=== PATIENT | female | born 1975 | race Caucasian/White ===

== ENCOUNTER 2016-11-05 10:36 | Emergency (ER) | payer OTHER ==
[~2016-11-05] VITALS: Ht 170.2 cm; Wt 96.2 kg
[~2016-11-05 10:36] MED LIST: LEVSIN/SL0.125 MG SL; METFORMIN HCL500 MG PO; PROBIOTICA100 Millio PO; TOPROL XL 12.12.5 MG PO; ULTRAM(MONOGRAP50 MG PO; XANAX0.25 MG PO
--- NOTE | 2016-11-05 10:41 | ED AMS/SEIZURE/WEAK/DIZZY ---
History of Present Illness General Chief Complaint: General Adult Stated Complaint: RAPID HR,GEN WEAKNESS Source: patient, family, old records Exam Limitations: no limitations Vital Signs & Intake/Output Vital Signs & Intake/Output Vital Signs Date Time Temp Pulse Resp B/P B/P Pulse O2 O2 Flow FiO2 Mean Ox Delivery Rate 11/05 1238 97.0 98 18 110/71 100 Room Air 11/05 1056 99 Room Air 11/05 1038 96.6 97 18 151/79 100 Room Air Allergies Coded Allergies: Sulfa (Sulfonamide Antibiotics) (Mild, HIVES 11/05/16) metoclopramide (Mild, I GO CRAZY 11/05/16) Reconcile Medications Alprazolam (Xanax) 0.25 MG TAB 1 TAB PO PRN ANXIETY (Reported) Hyoscyamine Sulfate (Levsin-Sl) 0.125 MG TAB 1 TAB SL Q6P PRN abd pain Lactobacillus Reuteri (Probiotica) 100 Million ORG CTB 1 CAP PO DAILY SUPPLMENT (Reported) Metformin Hydrochloride (Metformin HCl) 500 MG TAB 1 TAB PO DAILY DIABETES ( Reported) Metoprolol Succ XL (Toprol XL 12.5MG) 12.5 MG HTAB 1 TAB PO DAILY HEART ( Reported) Tramadol HCl (Ultram) 50 MG TAB 1-2 TAB PO Q6 PRN severe pain Triage Nurses Notes Reviewed? yes Onset: Abrupt Duration: day(s): (1) Timing: recent history Injury Environment: home Severity: mild, moderate Severity Numbers: 7 No Modifying Factors: none Associated Symptoms: palpitaitons HPI: Is a 41-year-old female history of PVCs presents to ER after she states she became lightheaded and dizzy palpitations and nauseous while standing. She is a OR nurse here. The patient states she had a dental procedure yesterday, she states she did not go home with any pain medications or antibiotics. She is not taken anything on a regular basis. No chest pain shortness of breath no recent fall or head trauma she denies fainting no abdominal pain vomiting diarrhea (SERA CANO,RAMÍREZ) Past History Travel History Traveled to [place] past 21 day No Medical History Any Pertinent Medical History? see below for history Cardiovascular: PVC Gastrointestinal: irritable bowel syndrome Surgical History Surgical History: hernia repair-umbilical, hernia repair-ventral, hysterectomy, D/C left oophorectomy Psychosocial History What is your primary language Faroese Family History Hx Contributory? No (RAMÍREZ WEAVER) Review of Systems Review of Systems Constitutional: Reports: see HPI. All Other Systems: Reviewed and Negative Comments Review of systems: See HPI, All other systems negative. Constitutional, no chills no fever, no malaise HEENT:no sore throat no congestion Cardiovascular: No chest pain palpitation Skin: no rashes, no change in skin Respiratory: No dyspnea no cough no sputum GI: No nausea no vomiting, no diarrhea, : No dysuria No hematuria, Muscle skeletal: No joint pain, no joint swelling, no back pain, no neck pain, Neurologic: No numbness no headache Psych: No stress Heme/endocrine: No bruising no bleeding Immunology: No lymphadenopathy (RAMÍREZ WEAVER) Physical Exam Physical Exam General Appearance: well developed/nourished, no apparent distress, alert, anxious Comments: Well-developed well-nourished person in no acute distress HEENT: Normal EENT exam; PERRL, EOMI, no nystagmus. HEAD is atraumatic. moist mucous membranes. Neck: Supple, normal range of motion Back: Nontender, no CVA tenderness. Full range of motion Cardiovascular: Regular rate and rhythms no murmurs Respiratory: Chest nontender.There were no bony deformities, no asymmetry. No respiratory distress. Patient speaking in full complete sentences. Breath sounds clear to auscultation bilaterally: NO W/R/R Abdomen: Soft, nontender nondistended, no appreciable organomegaly. Normal bowel sounds. No rebound/guarding, Extremity: No edema, full range of motion of extremities Neuro: Alert oriented x3, motor sensory normal. There were no obvious focal neurologic abnormalities. Skin: No appreciable rash on exposed skin, skin is warm and dry. Psych: Mood and affect is normal, memory and judgment is normal. Core Measures ACS in differential dx? Yes CVA/TIA Diagnosis: No Severe Sepsis Present: No Septic Shock Present: No (RAMÍREZ WEAVER) Progress Differential Diagnosis: arrythmia, anemia, benign positional vertigo, dehydration, labrynthitis, postural hypotension, vertebrobasilar insuff Plan of Care: Orders Procedure Date/time Status MISTAKE 11/05 1054 Active Saline Lock 11/05 1051 Active URINE DRUG SCREEN FOR ER ONLY 11/05 1051 Complete URINALYSIS 11/05 1051 Complete THYROID STIMULATING HORMONE 11/05 105 Complete TROPONIN LEVEL 11/05 105 Complete HUMAN BETA HCG SCREEN 11/05 105 Complete COMPREHENSIVE METABOLIC PANEL 11/05 105 Complete CBC WITHOUT DIFFERENTIAL 11/05 1050 Complete EKG 11/05 1037 Active Laboratory Tests 11/05/16 1149: Urine Opiates Screen < 100.00, Methadone Screen < 40, Barbiturate Screen < 60, Ur Phencyclidine Scrn < 6.00, Amphetamines Screen < 100, U Benzodiazepines Scrn < 85, Urine Cocaine Screen < 50, Urine Cannabis Screen < 5.00, Urine Color STRAW , Urine Clarity CLEAR, Urine pH 7.0, Ur Specific [place] 1.010, Urine Protein NEG, Urine Ketones NEG, Urine Nitrite NEG, Urine Bilirubin NEG, Urine Urobilinogen 0.2, Ur Leukocyte Esterase NEG, Ur Microscopic SEDIMENT EXAMINED, Urine RBC RARE, Urine WBC RARE, Ur Epithelial Cells MOD H, Urine Bacteria RARE H, Urine Hemoglobin TRACE-INTACT, Urine Glucose NEG 11/05/16 1055: Anion Gap 12, Estimated GFR > 60, BUN/Creatinine Ratio 18.6, Glucose 109 H, Calcium 9.6, Total Bilirubin 0.5, AST 27, ALT 32, Alkaline Phosphatase 71, Troponin I < 0.01, Total Protein 6.6, Albumin 4.1, Globulin 2.5, Albumin/ Globulin Ratio 1.6, TSH 1.650, Total Beta HCG NEGATIVE, CBC w Diff NO MAN DIFF REQ, RBC 4.24, MCV 91.9, MCH 31.0, RDW 12.9, MPV 9.4, Gran % 63.4, Lymphocytes % 29.4, Monocytes % 6.0, Eosinophils % 0.7, Basophils % 0.5, Absolute Granulocytes 6.0, Absolute Lymphocytes 2.8, Absolute Monocytes 0.6, Absolute Eosinophils 0.1, Absolute Basophils 0, PUBS MCHC 33.8 labs ordered, old records reviewed, iv fluids, zofran 4mg iv ordered 1130 patient reports to feeling improved sinus rhythm in the 60s on the monitor she has not had any irregularities PVCs or PACs. 1230 patient reports to feeling much improved she's been normal sinus in the 60s on the monitor after IV hydration orthostatics are negative discussed currently followed for lab results the patient has been ambulatory around the emergency room here. She believes it could be a combination of nerves and having a lot of stress in her life currently. Discussed with her plan of care, need for close follow-up with her primary care physician answered all questions she feels comfortable this plan (RAMÍREZ WEAVER) Initial ED EKG: stach at 100, normal axis, no acute st seg chagnes Rhythm Strip: normal sinus rhythm (RAMÍREZ WEAVER) Departure Departure Time of Disposition: 1231 Disposition: HOME OR SELF CARE Condition: Stable Clinical Impression Primary Impression: Dehydration Referrals: QUINCY LEON,ALIDA (PCP/Family) Additional Instructions: Rest drink plenty of clear fluids. Follow up with your primary care physician return with any concerns Departure Forms: Customer Survey General Discharge Information (RAMÍREZ WEAVER) PA/JAVA CORE DEVELOPER Co-Sign Statement Statement: ED Attending supervision documentation- I saw and evaluated the patient. I have also reviewed all the pertinent lab results and diagnostic results. I agree with the findings and the plan of care as documented in the PA's/JAVA CORE DEVELOPER's documentation. x I have reviewed the ED Record and agree with the PA's/JAVA CORE DEVELOPER's documentation. [] Additions or exceptions (if any) to the PAs/JAVA CORE DEVELOPER's note and plan are summarized below: [] (JENNIFER LEON,GARFIELD)
[2016-11-05 11:04] LABS: ABSOLUTE BASOPHIL COUNT 0 /CUMM (0.0-0.2); ABSOLUTE EOSINOPHIL COUNT 0.1 /CUMM (0.0-0.7); ABSOLUTE LYMPH COUNT 2.8 /CUMM (1.2-3.4); ABSOLUTE MONOCYTE COUNT 0.6 /CUMM (0.10-0.60); BASOPHIL % 0.5 % (0.0-2.0); EOSINOPHIL % 0.7 % (0-5); GRANULOCYTE % 63.4 % (42.2-75.2); HEMATOCRIT 38.9 % (37-47); MEAN CORPUSCULAR HGB CONC 33.8 G/DL (33.0-37.0); MEAN CORPUSCULAR VOLUME 91.9 FL (81.0-99.0); MEAN PLATELET VOLUME 9.4 FL (7.4-10.4); PLATELET COUNT 289 /CUMM (130-400); RBC DISTRIBUTION WIDTH 12.9 % (11.5-14.5); RED BLOOD CELL CT 4.24 /CUMM (4.20-5.40); WHITE BLOOD CELL COUNT 9.5 /CUMM (4.8-10.8)
[2016-11-05 12:38] VITALS: BP 110/71
== END 2016-11-05 12:44 ==
LOC: ERH 10:36
PROVIDERS: Physician Assistant Medical
DX: E86.0 Dehydration (principal); R53.1 Weakness; R42 Dizziness and giddiness
CPT/HCPCS: 80307; 81001; 93005; 93010; 96374; J2405